=== PATIENT | male | born 1960 | race Caucasian/White ===

== ENCOUNTER 2021-10-31 19:05 | Emergency (ER) | payer MEDICARE, SELFPAY ==
[2021-10-31] VITALS (8 sets, daily range): BP systolic 121–140; BP diastolic 53–77; PULSE 68–80; RESP 16–18; TEMP 36.3–36.6; O2SAT 96–99; BMI 34.4
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
--- NOTE | 2021-10-31 22:29 | PC.NURSE ---
AND JACQUES GALVIN AT BEDSIDE TO APPLY SUGAR-TONG SPLINT.
--- NOTE | 2021-10-31 22:47 | PC.NURSE ---
NEUROVASCULAR CHECK PERFORMED. PT TOLERATED WELL. PT REPORTS PAIN IS DULL ACHE- TYLENOL AND MOTRIN OFFERED AND DECLINED. PT STATES HE IS DRIVING HIMSELF AND HAS NO ONE TO DRIVE HIM.
== END 2021-10-31 23:49 | disposition home or self-care (01) ==
PROVIDERS: Emergency Provider Emergency Medicine; PCP Nurse Practitioner Family
DX: S52.201A Unspecified fracture of shaft of right ulna, initial encounter for closed fracture (principal); S00.211A Abrasion of right eyelid and periocular area, initial encounter; S80.11XA Contusion of right lower leg, initial encounter; W31.89XA Contact with other specified machinery, initial encounter
CPT/HCPCS: 70450; 73080; 73110; 73562; 99284